=== PATIENT | male | born 1975 | race African-American/Black ===

== ENCOUNTER → 2017-02-25 | Outpatient (CLI) | payer MEDICARE, MEDICAID ==
[~2017-02-25] MED LIST: AMLO5TAB88; CALC667C; CINA30; METO100T16; SEVE800T8
[2017-02-25 13:16] LABS: CLARITY URINE CLEAR (CLEAR); COLOR URINE YELLOW (YELLOW); KETONES URINE NEGATIVE (NEGATIVE); LEUKOCYTE ESTERASE URINE TRACE (NEGATIVE); NITRITE URINE NEGATIVE (NEGATIVE); OCCULT BLOOD URINE TRACE (NEGATIVE); PH URINE >=9.0 (4.5-8.0); PROTEIN URINE 1+ (NEGATIVE); SPECIFIC GRAVITY URINE 1.003 (1.005-1.030); UROBILINOGEN URINE 0.2 E.U./dL (0.2-1.0)
== END | disposition home or self-care (01) ==
LOC: LAB 09:56
PROVIDERS: ATTEND Specialist
DX: N18.6 End stage renal disease (principal); N39.0 Urinary tract infection, site not specified
CPT/HCPCS: 81001; 87086

== ENCOUNTER 2019-12-13 04:28 | Emergency (ER) | payer MEDICARE, MEDICAID ==
[~2019-12-13] VITALS: Ht 180.3 cm; Wt 113.0 kg
[2019-12-13] MEDS ORDERED: DIAZEPAM 2 MG TABLET PO ONE (06:15)
[2019-12-13] MEDS ORDERED: DIAZEPAM 5 MG TABLET PO SCH (06:30)
[2019-12-13] MEDS ORDERED: AMLODIPINE 5MG TABLET PO ONE (07:00)
[2019-12-13 07:57] VITALS: BP 174/94
== END 2019-12-13 08:05 | disposition home or self-care (01) ==
LOC: ER 04:48
DX: G89.29 Other chronic pain (principal); M54.41 Lumbago with sciatica, right side; I10 Essential (primary) hypertension; Z79.899 Other long term (current) drug therapy
CPT/HCPCS: 93005; 99283